=== PATIENT | female | born 1990 | race African-American/Black ===

== ENCOUNTER 2020-05-24 12:15 | Emergency (ER) | payer SELFPAY ==
[2020-05-24 12:28] VITALS: PULSE 83; RESP 16; TEMP 37.2; O2SAT 100; BMI 29.2
--- NOTE | 2020-05-24 12:49 | ED.GENADULT ---
HPI - General Adult General Chief complaint: General Medical Stated complaint: abscess Time Seen by Provider: 05/24/20 12:37 Source: patient Mode of arrival: ambulatory Limitations: no limitations History of Present Illness HPI narrative: 29-year-old female coming from [facility] with sore throat for the last 3 days. Seen at [facility] and there was concern for peritonsillar abscess so the patient was sent into the ED. She received Decadron 10 mg IM and viscous lidocaine just prior to arrival. On arrival the patient is telling me she is feeling improved and she is tolerating liquids and food on arrival. She denies any associated fevers or chills for the last few days. She does have bilateral ear pain. She is alternating Motrin and Tylenol at home for pain. Onset (ago): day(s) Radiation: non-radiation Severity: moderate Pain Consistency: constant Related Data Previous Rx's Medication Instructions Recorded amoxicillin 500 mg PO BID 10 Days #20 cap 05/24/20 lidocaine HCl [Lidocaine Viscous] 1 applic MUCOUS MEMBRANE Q12H PRN 05/24/20 #15 ml Allergies Allergy/AdvReac Type Severity Reaction Status Date / Time No Known Allergies Allergy Unverified 04/23/20 19:05 [No Known Allergies*] Review of Systems Review of Systems: Yes all other systems are reviewed and are negative Constitutional: Constitutional: Reports no additional constitutional complaints, Denies body ache(s), Denies chills, Denies fever(s), Denies headache(s) and Denies weakness Eyes: Eyes: Reports no additional eye complaints and Denies change in vision ENT: Reports system reviewed and no additional complaints, except as documented, Denies dizziness, Reports otalgia, Denies headache(s), Denies nasal congestion, Denies nasal discharge, Denies neck pain and Reports sore throat Cardiovascular: Cardiovascular: Reports no additional cardiovascular complaints, Denies chest pain, Denies leg edema and Denies dyspnea Respiratory: Respiratory: Reports no additional respiratory complaints, Denies cough and Denies dyspnea Gastrointestinal: Gastrointestinal: Reports no additional gastrointestinal complaints, Denies abdominal pain, Denies diarrhea, Denies nausea and Denies vomiting Genitourinary: Genitourinary: Reports no additional female genitourinary complaints and Denies urinary incontinence Musculoskeletal: Musculoskeletal: Reports no additional musculoskeletal complaints, Denies back pain, Denies arthralgias, Denies joint swelling, Denies neck pain, Denies numbness and Denies tingling Integumentary/Breasts: Skin/Breast: Reports system reviewed and no additional complaints, except as docu and Denies rash Neurologic: Reports system reviewed and no additional complaints, except as documented, Denies Abnormal speech present, Denies dizziness, Denies headache(s), Denies numbness, Denies tingling and Denies weakness PMF Past Medical History Attestation statement: The following information was validated with the patient. Source: old records reviewed and nursing notes reviewed Medical History No known health problems Social History Social History Advance Directives: No Advance Directives Information Provided: No Physical Exam Vital Signs: Vital Signs: Vital Signs Temp Pulse Resp Pulse Ox 05/24/20 12:28 98.9 F 83 16 100 Body Mass Index 29.2 Const: General: cooperative, healthy appearing, comfortable and no acute distress Orientation/consciousness: patient oriented x3 Limitations: no limitations HENMT: Head: Yes normal to inspection Ears: hearing grossly normal bilaterally, mastoids normal, periauricular adenopathy noted and other (bilateral TM bulging-no erythema. ) General nose exam: Normal external nose present Face and sinus: Yes normal facial exam Mouth: Normal oral and palatal mucosa present Throat: Yes uvula midline, No peritonsillar mass and Yes posterior oropharynx abnormal (bilateral tonsillar erythema and exudate. no trismus ) Eyes: General: appearance normal, both eyes and all related structures Pupils: Equal, round and reactive pupils present Neck: Neck: Yes normal visual inspection Chest: Chest palpation & inspection: normal inspection of the chest Resp: Effort & Inspection: normal respiratory effort Auscultation: clear to auscultation bilaterally Cardio: Rate: regular rate Rhythm: regular rhythm Peripheral pulses: Peripheral pulses 2+ throughout GI: Inspection: Yes normal to inspection Palpation (GI): Soft to palpation and nontender Auscultation: normal bowel sounds Back/Spine/Pelvis: Thoracic/Lumbar Spine: thoracic and lumbar spine normal to inspection Skin: General skin exam: no rashes or lesions noted Neuro: General: patient oriented x3, no focal motor deficits and normal sensation to monofilament Cranial nerves: Yes Equal, round and reactive pupils present Cognition (Neuro): normal cognition Speech: No Abnormal speech present Gait exam (Neuro): Normal gait present Motor exam (neuro): 5/5 motor strength present throughout Extrem: General: Yes normal to inspection Course Course Course Narrative: 29-year-old female here with sore throat for 3 days. Seen at urgent care and sent into the ED further evaluation with concern for peritonsillar abscess. Exam is consistent with bilateral tonsillitis. There is no obvious peritonsillar abscess. Uvula is midline. There is no trismus. Tolerating liquids and food in the ED. Will send rapid strep test. Patient is requesting COVID testing. She has no additional symptoms. SARS COVID testing sent. 1350- Rapid strep positive. Will treat with amoxicillin times 10 days. Patient tolerated Jell-O, putting and a sandwich while she was here in the ER. Well appearing. Reviewed worrisome signs and symptoms and when to return to the emergency department. Comfortable discharge home. Medical Decision Making MDM Narrative Medical decision making narrative: rapid strep positive. Low concern for peritonsillar abscess with no unilateral swelling. Uvula is midline. The patient is tolerating secretions with no trismus Or voice change. Lab Data Lab results reviewed: Yes I reviewed the patient's lab results. Lab results narrative: Rapid strep positive Discharge Plan Discharge Clinical Impression: Pharyngitis Qualifiers: Pharyngitis/tonsillitis etiology: streptococcus Qualified Code(s): J02.0 - Streptococcal pharyngitis Patient Disposition: Home, Self-Care Instructions: Pharyngitis (ED) Additional Instructions: salt water gargles Throw out toothbrush after 2 doses of antibiotic Continue motrin and tylenol as discussed We will call you in 1-2 days with your COVID result Prescriptions: New amoxicillin 500 mg capsule 500 mg PO BID 10 Days Qty: 20 RF: 0 Lidocaine Viscous 2 % solution 1 applic mucous membrane Q12H PRN (Reason: pain) Qty: 15 RF: 0 Referrals: Candie Becerra APRN [Primary Care Provider] - 2 days Stand Alone Forms: Work/School Release Interventions: ED Discharge Assessment Last Done: 05/24/20 14:01 Discharge Date/Time: 05/24/20 14:02
[2020-05-24] MEDS: Amoxicillin 500 MG CAPSULE PO (13:53)
== END 2020-05-24 14:02 | disposition home or self-care (01) ==
PROVIDERS: Nurse Practitioner Family; Emergency Provider Emergency Medicine; PCP Nurse Practitioner
DX: J02.0 Streptococcal pharyngitis (principal); Z20.828 Contact with and (suspected) exposure to other viral communicable diseases
CPT/HCPCS: 87635; 99283; 99284

== ENCOUNTER → 2020-11-03 11:30 | Outpatient (BNVA) | payer OTHER, SELFPAY | PROVIDERS: PCP Internal Medicine; Visit Provider Dietitian, Registered ==

== ENCOUNTER → 2020-12-31 11:52 | Outpatient (BNVA) | payer OTHER, SELFPAY | PROVIDERS: PCP Internal Medicine; Visit Provider Dietitian, Registered | DX: E66.3 Overweight (principal) | CPT/HCPCS: 97803 ==

== ENCOUNTER 2021-01-14 14:20 | Emergency (ER) | payer OTHER, SELFPAY ==
[2021-01-14] VITALS (9 sets, daily range): BP systolic 102–114; BP diastolic 49–62; PULSE 66–84; RESP 16; TEMP 36.9–37.4; O2SAT 97–99; BMI 26.5
--- NOTE | ~2021-01-14 | CT_ITS ---
EXAMINATION: CT ABDOMEN AND PELVIS WITH CONTRAST CLINICAL INFORMATION: Sudden onset abdominal pain after intercourse COMPARISON: None TECHNIQUE: Multidetector volumetric images were obtained from the superior aspect of the liver through the pubic symphysis following administration 85 mL of Omnipaque 350 intravenous contrast. Sagittal and coronal reformatted images were obtained on the technologist's workstation. Oral contrast: No This CT examination was performed using dose optimization techniques as appropriate, variously including the following: *Automated exposure control *Adjustment of mA and/or kV according to patient size (this includes techniques or standardized protocols for targeted exams where dose is matched to indication/reason for exam; i.e. extremities or head) *Use of iterative reconstruction technique DLP: 578 mGy-cm FINDINGS: LUNG BASES: The visualized lung bases are unremarkable. LIVER, GALLBLADDER, AND BILIARY TREE: The liver is normal in size, shape, and attenuation. No focal hepatic lesion or biliary ductal dilatation is present. The gallbladder is unremarkable with no evidence of radiopaque gallstones, gallbladder wall thickening, or obvious pericholecystic inflammatory changes. PANCREAS: Unremarkable. SPLEEN: Unremarkable. ADRENAL GLANDS: Unremarkable. KIDNEYS AND URETERS: The kidneys are normal in size, shape, and attenuation. No hydronephrosis, hydroureter, or calculi seen. No perinephric stranding. BLADDER: Unremarkable. GASTROINTESTINAL TRACT: The small and large bowel are unremarkable. The appendix is none seen. ABDOMINAL WALL: No significant hernia is appreciated. LYMPH NODES: No retroperitoneal lymphadenopathy. VASCULAR: The aorta and iliofemoral vessels appear normal. PERITONEUM and PELVIS: Moderate amount of high density ascites is present with a large mass, most likely sentinel clot, seen in the right hemipelvis measuring 11.4 x 6.5 x 9.3 cm. There is a some small areas of fat attenuation within this large blood clot but the significance is uncertain. 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 The inferior epigastric arteries run directly in front of this hematoma but I do not see him as a source of hemorrhage. An anteverted is uterus is present. Aside from the sentinel clot, no other adnexal masses are seen. As most of this blood is in the peritoneal cavity. Differential diagnosis would include a ruptured hemorrhagic ovarian cysts, bleeding from a dermoid or other ovarian neoplasm, or possibly bleeding related to the pelvic varices although I would suspect that this would be too low pressure the findings present in this case. OSSEOUS STRUCTURES: Unremarkable. CT/CT abdomen pelvis w con IMPRESSION: High density ascites and large sentinel clot in right hemipelvis secondary to pelvic hemorrhage. The source of the hemorrhage is not seen but a differential diagnosis is provided above. This critical result was discussed with Dr Cosby at 5:05 pm immediately after the exam and it was ascertained that the content and urgency of the report was understood at the time of direct communication.
--- NOTE | ~2021-01-14 | CT_ITS ---
EXAMINATION: CT HEAD WITHOUT CONTRAST CLINICAL INFORMATION: Syncope, right hand injury. COMPARISON: CT head noncontrast dated 06/26/2018. TECHNIQUE: Contiguous axial imaging was performed from the skull base to vertex without intravenous administration of contrast. Additional 2-D coronal and sagittal reformatted images are generated on the CT workstation and uploaded to PACS. This CT examination was performed using dose optimization techniques as appropriate, variously including the following: *Automated exposure control *Adjustment of mA and/or kV according to patient size (this includes techniques or standardized protocols for targeted exams where dose is matched to indication/reason for exam; i.e. extremities or head) *Use of iterative reconstruction technique DLP: 695 mGy-cm FINDINGS: There is no intracranial hemorrhage, hematoma, or extra-axial fluid collection. The ventricles are normal in size. There is no hydrocephalus, edema, or mass effect. The ventura-white matter differentiation appears symmetric. There is no visible acute territorial infarct or mass lesion. The calvarium appears intact. There is no pneumocephalus or orbital emphysema. The visualized sinuses and middle ears and mastoid air cells show no significant mucosal thickening. There are no air-fluid levels. CT/CT head/brain wo con IMPRESSION: Normal study.
--- NOTE | 2021-01-14 15:09 | ED_ITS ---
HPI - Abdominal Pain General Chief Complaint: Abdominal Pain Stated Complaint: N/V/D,SOB,WEAKNESS Time Seen by Provider: 01/14/21 14:45 Source: patient Mode of arrival: EMS Limitations: no limitations History of Present Illness HPI narrative: 30-year-old female who presents emergency department for evaluation of abdominal pain. The patient states that she has not had intercourse in over a month. She states that last night at 4:00 a.m. she had intercourse. She states that it was slightly painful but not breath. She states that immediately after intercourse she developed severe pain in her abdomen. She describes the pain as a sudden onset of cramping which has been constant. The pain was severe at onset and remains severe and is 10/10. She states that the pain is worse with movement and is relieved if she stays perfectly still. She states she feels like she has to move her bowels. The patient states the last night she got up to try to move her bowels and then passed out. She did strike the right side of her head and she had loss of consciousness unknown period of time. The patient states that she is due for her next menstrual now and is 4 days late. The patient had a 7 years ago otherwise has no other past surgical history. Related Data Previous Rx's Medication Instructions Recorded amoxicillin 500 mg PO BID 10 Days #20 cap 05/24/20 lidocaine HCl [Lidocaine Viscous] 1 applic MUCOUS MEMBRANE Q12H PRN 05/24/20 #15 ml Allergies Allergy/AdvReac Type Severity Reaction Status Date / Time No Known Allergies Allergy Unverified 04/23/20 19:05 [No Known Allergies*] Review of Systems Review of Systems Yes all other systems are reviewed and are negative Physical Exam Vital Signs: Vital Signs: Last Vital Signs Temp 98.7 F 01/14/21 18:05 Pulse 76 01/14/21 18:05 Resp 16 01/14/21 18:05 BP 105/58 L 01/14/21 18:05 Pulse Ox 99 01/14/21 18:05 Body Mass Index 26.5 Const: General: cooperative and in distress severe (Secondary to pain) Orientation/consciousness: oriented to person and oriented to place Limitations: no limitations HENMT: Other: The patient has a small hematoma with a superficial laceration to her right forehead consistent with her striking her head after syncopal episode Head: Yes normocephalic Ears: external ears normal General nose exam: Normal external nose present Face and sinus: Yes normal facial exam Mouth: Normal oral and palatal mucosa present Throat: Yes posterior oropharynx normal Eyes: Periorbital: periorbital findings normal Eyelids: Yes eyelids normal Conjunctivae: conjunctivae normal Sclerae: sclerae normal Corneas: corneas normal Pupils: Equal, round and reactive pupils present Direct Ophthalmoscopy: normal light reflex Neck: Neck: Yes full ROM, Yes no lymphadenopathy, Yes no meningeal signs, Yes trachea midline and Yes supple Chest: Chest palpation & inspection: normal inspection of the chest and normal palpation of entire chest wall Resp: Effort & Inspection: normal respiratory effort and able to speak in complete sentences Auscultation: clear to auscultation bilaterally Cardio: Rate: regular rate Rhythm: regular rhythm Heart sounds: S1 normal heart sound present, S2 normal heart sound present and no murmurs GI: Inspection: Yes normal to inspection Palpation (GI): Soft to palpation, Tenderness to palpation present (GI) in the LLQ, in the RLQ, suprapubicly and with rebound tenderness, no guarding, not rigid and No hepatosplenomegaly present : General: Yes no CVA tenderness Back/Spine/Pelvis: Back: no CVA tenderness Cervical Spine: normal cervical lordosis Thoracic/Lumbar Spine: thoracic and lumbar spine normal to inspection Skin: Lesions: no lesions Rashes: no rashes Wounds: no wounds Neuro: General: oriented to person, oriented to place and no meningeal signs Cranial nerves: Yes CN's II-XII intact bilaterally and Yes Equal, round and reactive pupils present Cognition (Neuro): normal cognition Motor exam (neuro): 5/5 motor strength present throughout Extrem: General: Yes normal to inspection and Yes full ROM Psych: Appearance: well kempt Mental Status: mental status grossly normal Speech and movement: Normal speech and movement present Affect: normal affect Attitude: cooperative Thought process: Normal thought process present Thought content: Normal thought content present Course Course Course Narrative: 30-year-old female who presents emergency department for evaluation of sudden onset abdominal pain which started at 4:00 a.m. after she had intercourse. The pain is been constant and severe. Patient has the urge to move her bowels but was unable to produce stool. On her physical examination she had lower abdominal tenderness which was moderate to severe with rebound and guarding. I am concerned the patient may have a perforation possibly of her uterus verses a perforated viscus. I ordered a CBC, CMP, PT/INR, PTT, lactic acid, lipase, serum HCG. The patient was ordered to get morphine 4 mg IV and Zofran 4 mg IV. I also ordered normal saline x1 L. 1733: Patient's laboratory evaluation revealed low H&H of 8.8 and 26.6. Patient's coags were normal. Quantitative Beta hCG was negative. CT scan of the head was negative. CT scan of the abdomen pelvis findings are as follows: moderate amount of high density ascites present with a large mass, most likely sentinel clot, seen in the right hemipelvis measuring 11.4 x 6.5 x 9.3 cm. Differential diagnosis would include a ruptured hemorrhagic ovarian cysts, bleeding from a dermoid or other ovarian neoplasm, or possibly bleeding related to the pelvic varices although I would suspect that this would be too low pressure the findings present in this case. I discussed these findings with our covering general surgeon, Dr. Boss and he recommended consulting OBGYN. I then discuss these findings with Dr. Storey our covering OBGYN surgeon. Given the differential which includes possible ovarian neoplasm, she felt that the patient would be better cared for at a facility that had gynecologic heme Onc and possible interventional radiology capabilities, therefore she recommended patient be transferred to [facility]. Our OBGYN also recommended repeat CBC to see if the patient is actively bleeding. 1750: I did contact [facility] transfer line and I will discuss transfer with the covering OBGYN service. 1805: Repeat CBC revealed an H&H of 8.2 in 25.0. This is reassuring suggesting that she may not be actively bleeding. I did order transfusion of 2 units of packed red blood cells and we are currently waiting for the blood to come from the blood bank. 1831: I did discuss the patient's presentation with the OBGYN attending at [facility], who will accept this patient in transfer to the OBGYN service. I will transfuse 2 units of packed red blood cells prior to transferring the patient. MDM - Abdominal Pain Lab Data Result diagrams: 01/14/21 17:46 01/14/21 15:36 Labs: Lab Results 01/14/21 01/14/21 01/14/21 Range/Units 15:35 15:35 15:36 WBC 12.3 H (4.8-10.8) X10*3/uL RBC 2.94 L (4.20-5.50) X10*6/uL Hgb 8.8 L (12.0-16.0) g/dl Hct 26.6 L (37-47) % MCV 90.5 (80-98) fL MCH 29.9 (27.0-33.0) pg MCHC 33.1 (31.0-35.0) g/dl RDW 11.4 (11.0-16.0) % Plt Count 201 (160-400) X10*3/uL MPV 9.3 L (9.4-12.3) fL Immature Gran % (Auto) 0.6 H (0.0-0.4) % Neut % (Auto) 81.5 H (45-73) % Lymph % (Auto) 13.1 L (20-40) % [place] % (Auto) 4.5 (2-11) % Eos % (Auto) 0.2 (0-4) % Baso % (Auto) 0.1 (0-2) % Lymph # (Auto) 1.6 (1.2-4.9) X10*3/uL [place] # (Auto) 0.6 (0.1-1.2) X10*3/uL Eos # (Auto) 0.0 (0.0-0.4) X10*3/uL Baso # (Auto) 0.0 (0.0-0.2) X10*3/uL Abs Immat Gran (auto) 0.08 H (0.00-0.03) X10*3/uL Absolute Neuts (auto) 10.0 H (2.0-8.3) X10*3/uL Absolute Nucleated RBC 0.000 (0.0-0.012) X10*3/uL Nucleated RBC % (auto) 0.0 (0.0-0.2) /100WBC PT 13.9 H (10.8-13.0) SEC INR 1.2 H (0.9-1.1) APTT 23.1 L (24.1-38.0) SEC Sodium 135 (135-145) mmol/L Potassium 4.1 (3.3-5.1) mmol/L Chloride 108 (96-108) mmol/L Carbon Dioxide 20 L (22-29) mmol/L Anion Gap 11 L (12-20) BUN 12 (9-16) mg/dL Creatinine 0.64 (0.5-1.4) mg/dL Estim Creat Clear Calc 116.8 Estimated GFR > 60 Random Glucose 93 (60-115) mg/dL Lactic Acid (0.5-2.0) mmol/L Calcium 8.6 (8.4-10.2) mg/dL Total Bilirubin 0.4 (0.0-1.0) mg/dL AST 13 (5-31) U/L ALT 12 (0-31) U/L Alkaline Phosphatase 34 L (39-117) U/L Total Protein 5.7 L (6.5-8.0) g/dL Albumin 3.7 (3.5-5.0) g/dL Lipase 10 (8-78) U/L Beta HCG, Quant < 2 mIU/mL Blood Type Crossmatch 01/14/21 01/14/21 01/14/21 Range/Units 15:36 17:41 17:46 WBC 11.5 H (4.8-10.8) X10*3/uL RBC 2.72 L (4.20-5.50) X10*6/uL Hgb 8.2 L (12.0-16.0) g/dl Hct 25.0 L (37-47) % MCV 91.9 (80-98) fL MCH 30.1 (27.0-33.0) pg MCHC 32.8 (31.0-35.0) g/dl RDW 11.7 (11.0-16.0) % Plt Count 183 (160-400) X10*3/uL MPV 9.1 L (9.4-12.3) fL Immature Gran % (Auto) 0.6 H (0.0-0.4) % Neut % (Auto) 75.0 H (45-73) % Lymph % (Auto) 17.8 L (20-40) % [place] % (Auto) 5.8 (2-11) % Eos % (Auto) 0.7 (0-4) % Baso % (Auto) 0.1 (0-2) % Lymph # (Auto) 2.0 (1.2-4.9) X10*3/uL [place] # (Auto) 0.7 (0.1-1.2) X10*3/uL Eos # (Auto) 0.1 (0.0-0.4) X10*3/uL Baso # (Auto) 0.0 (0.0-0.2) X10*3/uL Abs Immat Gran (auto) 0.07 H (0.00-0.03) X10*3/uL Absolute Neuts (auto) 8.6 H (2.0-8.3) X10*3/uL Absolute Nucleated RBC 0.000 (0.0-0.012) X10*3/uL Nucleated RBC % (auto) 0.0 (0.0-0.2) /100WBC PT (10.8-13.0) SEC INR (0.9-1.1) APTT (24.1-38.0) SEC Sodium (135-145) mmol/L Potassium (3.3-5.1) mmol/L Chloride (96-108) mmol/L Carbon Dioxide (22-29) mmol/L Anion Gap (12-20) BUN (9-16) mg/dL Creatinine (0.5-1.4) mg/dL Estim Creat Clear Calc Estimated GFR Random Glucose (60-115) mg/dL Lactic Acid 0.9 (0.5-2.0) mmol/L Calcium (8.4-10.2) mg/dL Total Bilirubin (0.0-1.0) mg/dL AST (5-31) U/L ALT (0-31) U/L Alkaline Phosphatase (39-117) U/L Total Protein (6.5-8.0) g/dL Albumin (3.5-5.0) g/dL Lipase (8-78) U/L Beta HCG, Quant mIU/mL Blood Type A Positive Crossmatch See Detail Imaging Data CT abdomen pelvis with IV contrast: Radiologist's impression: [address] [id number] Scan ReportSigned Patient: Makenna SantiagoMR#: [id number]: [id number]:[id number]/Sex: 30 / FADM Date: 01/14/21Loc: HO.EDAttending Dr: Ordering Physician: Tony Cosby MD Date of Service: 01/14/21 Procedure(s): CT abdomen pelvis w con Accession Number(s): [id number] cc: Tony Cosby MD~ EXAMINATION: CT ABDOMEN AND PELVIS WITH CONTRAST CLINICAL INFORMATION: Sudden onset abdominal pain after intercourse COMPARISON: None TECHNIQUE: Multidetector volumetric images were obtained from the superior aspect of the liver through the pubic symphysis following administration 85 mL of Omnipaque 350 intravenous contrast. Sagittal and coronal reformatted images were obtained on the technologist's workstation. Oral contrast: No This CT examination was performed using dose optimization techniques as appropriate, variously including the following: *Automated exposure control *Adjustment of mA and/or kV according to patient size (this includes techniques or standardized protocols for targeted exams where dose is matched to indication/reason for exam; i.e. extremities or head) *Use of iterative reconstruction technique DLP: 578 mGy-cm FINDINGS: LUNG BASES: The visualized lung bases are unremarkable. LIVER, GALLBLADDER, AND BILIARY TREE: The liver is normal in size, shape, and attenuation. No focal hepatic lesion or biliary ductal dilatation is present. The gallbladder is unremarkable with no evidence of radiopaque gallstones, gallbladder wall thickening, or obvious pericholecystic inflammatory changes. PANCREAS: Unremarkable. SPLEEN: Unremarkable. ADRENAL GLANDS: Unremarkable. KIDNEYS AND URETERS: The kidneys are normal in size, shape, and attenuation. No hydronephrosis, hydroureter, or calculi seen. No perinephric stranding. BLADDER: Unremarkable. GASTROINTESTINAL TRACT: The small and large bowel are unremarkable. The appendix is none seen. ABDOMINAL WALL: No significant hernia is appreciated. LYMPH NODES: No retroperitoneal lymphadenopathy. VASCULAR: The aorta and iliofemoral vessels appear normal. PERITONEUM and PELVIS: Moderate amount of high density ascites is present with a large mass, most likely sentinel clot, seen in the right hemipelvis measuring 11.4 x 6.5 x 9.3 cm. There is a some small areas of fat attenuation within this large blood clot but the significance is uncertain. 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 The inferior epigastric arteries run directly in front of this hematoma but I do not see him as a source of hemorrhage. An anteverted is uterus is present. Aside from the sentinel clot, no other adnexal masses are seen. As most of this blood is in the peritoneal cavity. Differential diagnosis would include a ruptured hemorrhagic ovarian cysts, bleeding from a dermoid or other ovarian neoplasm, or possibly bleeding related to the pelvic varices although I would suspect that this would be too low pressure the findings present in this case. OSSEOUS STRUCTURES: Unremarkable. CT/CT abdomen pelvis w con IMPRESSION: High density ascites and large sentinel clot in right hemipelvis secondary to pelvic hemorrhage. The source of the hemorrhage is not seen but a differential diagnosis is provided above. This critical result was discussed with Dr Cosby at 5:05 pm immediately after the exam and it was ascertained that the content and urgency of the report was understood at the time of direct communication. Dictated By:TAYLOR WARREN MDSigned By:<Electronically signed by TAYLOR WARREN MD in OV>01/14/21 1724 DD/ [id number]/TT: Associate Professor Of Communication: Critical Care Time Critical Care Time Total Critical Care Time: 45 Attestation: Critical Care: The patient was critically ill with a high probability of imminent or life threatening deterioration. I spent greater than 30 minutes of discontinuous time evaluating the patient,delivering critical care at the bedside, discussing and evaluating pertinent data with consultants. Critical care time does not include time spent performing separately billable procedures or teaching. Total time spent performing critical care was 45 minutes. Discharge Plan Discharge Clinical Impression: Nontraumatic hemoperitoneum Abdominal pain Qualifiers: Abdominal location: lower abdomen, unspecified Qualified Code(s): R10.30 - Lower abdominal pain, unspecified Syncope Qualifiers: Syncope type: unspecified Qualified Code(s): R55 - Syncope and collapse Closed head injury Qualifiers: Encounter type: initial encounter Qualified Code(s): S09.90XA - Unspecified injury of head, initial encounter Patient Disposition: [facility] Transfer Details: [facility] ED to OBGYN service Prescriptions: No Action amoxicillin 500 mg capsule 500 mg PO BID 10 Days Qty: 20 RF: 0 Lidocaine Viscous 2 % solution 1 applic mucous membrane Q12H PRN (Reason: pain) Qty: 15 RF: 0 PMFSH Past Medical History PMFSH Narrative: Past medical history: None . Past surgical history: C- section 7 years prior. Social history: She smokes 2-3 cigarettes per day times several years. She drinks alcohol on the weekends, 1-2 drinks. She denies drug use. Medical History (Updated 01/14/21 @ 18:40 by Tony Cosby MD) Hemoperitoneum No known health problems Social History Social History Alcohol intake: never Patient Tobacco Use Status: Current someday Tobacco user Use of substances other than those prescribed or required for medical reasons: No Advance Directives: Yes Advance Directives Information Provided: Yes Advance Directives on File: No Patient : No
[2021-01-14] MEDS: Morphine Sulfate 4 MG/ML CARTRIDGE IVPUSH (15:37)
[2021-01-14] MEDS: ondansetron HCL 4 MG/2 ML VIAL IVPUSH (15:37)
[2021-01-14] MEDS: 0.9 % Sodium Chloride 1,000 ML 999 ML IV (15:37)
[2021-01-14 15:43] LABS: MANUAL DIFF FLAG NO
[2021-01-14 15:45] LABS: Basophils Percent Auto 0.1 % (0-2); Eosinophils Percent Auto 0.2 % (0-4); Hematocrit 26.6 % (37-47); Hemoglobin 8.8 g/dl (12.0-16.0); Imm Gran Abs Auto 0.08 X10*3/uL (0.00-0.03); Imm Gran Pct Auto 0.6 % (0.0-0.4); Lymphocytes Absolute Auto 1.6 X10*3/uL (1.2-4.9); Lymphocytes Percent Auto 13.1 % (20-40); Mean Corpuscular HGB Conc 33.1 g/dl (31.0-35.0); Mean Corpuscular Hemoglobin 29.9 pg (27.0-33.0); Mean Corpuscular Volume 90.5 fL (80-98); Mean Platelet Volume 9.3 fL (9.4-12.3); Monocytes Absolute Auto 0.6 X10*3/uL (0.1-1.2); Monocytes Percent Auto 4.5 % (2-11); Neutrophils Percent Auto 81.5 % (45-73); Platelet Count 201 X10*3/uL (160-400); Red Blood Count 2.94 X10*6/uL (4.20-5.50); Red Cell Distribution Width 11.4 % (11.0-16.0); White Blood Count 12.3 X10*3/uL (4.8-10.8)
[2021-01-14 15:54] LABS: INTERNATIONAL NORM RATIO 1.2 (0.9-1.1); Prothrombin Time 13.9 SEC (10.8-13.0)
[2021-01-14 16:08] LABS: Partial Thromboplastin Time 23.1 SEC (24.1-38.0)
[2021-01-14 16:13] LABS: Lactic Acid 0.9 mmol/L (0.5-2.0)
[2021-01-14 16:23] LABS: HCG Quantitative < 2 mIU/mL
[2021-01-14] MEDS: iohexoL 350 MG/ML 100 ML INFUS..BTL IV (16:28)
[2021-01-14 16:39] LABS: Alanine Aminotransferase 12 U/L (0-31); Albumin Level 3.7 g/dL (3.5-5.0); Alkaline Phosphatase 34 U/L (39-117); Anion Gap 11 (12-20); Aspartate Amino Transferase 13 U/L (5-31); Bilirubin Total 0.4 mg/dL (0.0-1.0); Blood Urea Nitrogen 12 mg/dL (9-16); Calcium 8.6 mg/dL (8.4-10.2); Carbon Dioxide 20 mmol/L (22-29); Chloride 108 mmol/L (96-108); Creatinine Clr Calc Pharmacy 116.8; Estimated Glomerular Filt Rate > 60; Glucose Random 93 mg/dL (60-115); Lipase 10 U/L (8-78); Potassium 4.1 mmol/L (3.3-5.1); Sodium 135 mmol/L (135-145); Total Protein 5.7 g/dL (6.5-8.0)
[2021-01-14] MEDS: Ketorolac Tromethamine 30 MG/ML VIAL IVPUSH (16:39)
[2021-01-14 17:50] LABS: MANUAL DIFF FLAG NO
[2021-01-14 17:51] LABS: Basophils Percent Auto 0.1 % (0-2); Eosinophils Absolute Auto 0.1 X10*3/uL (0.0-0.4); Eosinophils Percent Auto 0.7 % (0-4); Hemoglobin 8.2 g/dl (12.0-16.0); Imm Gran Abs Auto 0.07 X10*3/uL (0.00-0.03); Imm Gran Pct Auto 0.6 % (0.0-0.4); Lymphocytes Percent Auto 17.8 % (20-40); Mean Corpuscular HGB Conc 32.8 g/dl (31.0-35.0); Mean Corpuscular Hemoglobin 30.1 pg (27.0-33.0); Mean Corpuscular Volume 91.9 fL (80-98); Mean Platelet Volume 9.1 fL (9.4-12.3); Monocytes Absolute Auto 0.7 X10*3/uL (0.1-1.2); Monocytes Percent Auto 5.8 % (2-11); Neutrophils Absolute Auto 8.6 X10*3/uL (2.0-8.3); Platelet Count 183 X10*3/uL (160-400); Red Blood Count 2.72 X10*6/uL (4.20-5.50); Red Cell Distribution Width 11.7 % (11.0-16.0); White Blood Count 11.5 X10*3/uL (4.8-10.8)
--- NOTE | 2021-01-14 18:07 | PM.CNGS ---
History of Present Illness Consult details Consult date: 01/14/21 Narrative: 30F her in the ED for lower abdominal pain. She says this started at around 4 am this morning. She states that this started immediately after she had sexual intercourse. She denies instrumentation into the vagina. She says the pain was sudden and severe and she apparently passed out around 7 am. She did not go to the hospital immediately as she says she felt very weak and had a 7 y.o daughter with her who needed children's institution attendant. She eventually called an ambulance this afternoon to take her to the ED. She denies any vagfinal bleeding. She denies bleeding per rectum She says she \hit her head when she fell during her syncopal episode. Review of Systems Constitutional: Constitutional: Denies chills and Denies fever(s) Cardiovascular: Cardiovascular: Denies chest pain, Denies dyspnea and Denies dyspnea on exertion Respiratory: Respiratory: Denies cough, Denies dyspnea and Denies dyspnea on exertion Gastrointestinal: Gastrointestinal: Denies hematochezia and Denies change in bowel habits Genitourinary: Genitourinary: Denies abnormal vaginal bleeding, Denies hematuria and Denies vaginal discharge Musculoskeletal: Musculoskeletal: Denies back pain and Denies limited range of motion Neurologic: Denies focal weakness and Denies convulsions Psychiatric: Psychiatric: Denies depression and Denies mood swings PMFSH Past Medical History Medical History (Updated 01/15/21 @ 00:01 by Abhilash Maradiaga) Hemoperitoneum No known health problems Social History Social History Alcohol intake: never Patient Tobacco Use Status: Current someday Tobacco user Use of substances other than those prescribed or required for medical reasons: No Advance Directives: Yes Advance Directives Information Provided: Yes Advance Directives on File: No Patient : No Meds Allergies Allergy/AdvReac Type Severity Reaction Status Date / Time No Known Allergies Allergy Unverified 04/23/20 19:05 [No Known Allergies*] Physical Exam Vital Signs: Vital Signs: Last Vital Signs Temp 99.4 F 01/14/21 14:35 Pulse 83 01/14/21 14:35 Resp 16 01/14/21 14:35 BP 106/55 L 01/14/21 14:35 Pulse Ox 97 01/14/21 14:35 Body Mass Index 26.5 Const: Other: not distress but very anxious, crying General: comfortable Orientation/consciousness: patient oriented x3 Neck: Neck: Yes no lymphadenopathy Resp: Auscultation: clear to auscultation bilaterally Cardio: Rhythm: regular rhythm GI: Other: tender mostly on the lower abdomen, pelvic area Palpation (GI): Soft to palpation, Tenderness to palpation present (GI) and Guarding due to palpation present (GI) Neuro: General: patient oriented x3 Results Labs Result diagrams: 01/14/21 17:46 01/14/21 15:36 Labs: Abnormal lab results 01/14/21 01/14/21 01/14/21 Range/Units 15:35 15:35 15:36 WBC 12.3 H (4.8-10.8) X10*3/uL RBC 2.94 L (4.20-5.50) X10*6/uL Hgb 8.8 L (12.0-16.0) g/dl Hct 26.6 L (37-47) % MPV 9.3 L (9.4-12.3) fL Immature Gran % (Auto) 0.6 H (0.0-0.4) % Neut % (Auto) 81.5 H (45-73) % Lymph % (Auto) 13.1 L (20-40) % Abs Immat Gran (auto) 0.08 H (0.00-0.03) X10*3/uL Absolute Neuts (auto) 10.0 H (2.0-8.3) X10*3/uL PT 13.9 H (10.8-13.0) SEC INR 1.2 H (0.9-1.1) APTT 23.1 L (24.1-38.0) SEC Carbon Dioxide 20 L (22-29) mmol/L Anion Gap 11 L (12-20) Alkaline Phosphatase 34 L (39-117) U/L Total Protein 5.7 L (6.5-8.0) g/dL Crossmatch 01/14/21 01/14/21 Range/Units 17:41 17:46 WBC 11.5 H (4.8-10.8) X10*3/uL RBC 2.72 L (4.20-5.50) X10*6/uL Hgb 8.2 L (12.0-16.0) g/dl Hct 25.0 L (37-47) % MPV 9.1 L (9.4-12.3) fL Immature Gran % (Auto) 0.6 H (0.0-0.4) % Neut % (Auto) 75.0 H (45-73) % Lymph % (Auto) 17.8 L (20-40) % Abs Immat Gran (auto) 0.07 H (0.00-0.03) X10*3/uL Absolute Neuts (auto) 8.6 H (2.0-8.3) X10*3/uL PT (10.8-13.0) SEC INR (0.9-1.1) APTT (24.1-38.0) SEC Carbon Dioxide (22-29) mmol/L Anion Gap (12-20) Alkaline Phosphatase (39-117) U/L Total Protein (6.5-8.0) g/dL Crossmatch See Detail Short CBC 01/14/21 01/14/21 Range/Units 15:35 17:46 WBC 12.3 H 11.5 H (4.8-10.8) X10*3/uL Hgb 8.8 L 8.2 L (12.0-16.0) g/dl Hct 26.6 L 25.0 L (37-47) % Plt Count 201 183 (160-400) X10*3/uL BMP 01/14/21 15:36 Sodium 135 Potassium 4.1 Chloride 108 Carbon Dioxide 20 L BUN 12 Creatinine 0.64 Calcium 8.6 Liver Function 01/14/21 Range/Units 15:36 Total Bilirubin 0.4 (0.0-1.0) mg/dL AST 13 (5-31) U/L ALT 12 (0-31) U/L Alkaline Phosphatase 34 L (39-117) U/L Albumin 3.7 (3.5-5.0) g/dL All other labs normal. Imaging Abdomen CT scan report/results: report reviewed and image reviewed CT scan - pelvis: report reviewed and image reviewed Assessment and Plan (1) Hemoperitoneum: Status: Acute I have reviewed her CT images and there is note of large amounts of clots in the right adnexal area and hemoperitoneum. The CT scan picture and the clinical timeline is suggestive of a pelvic etiology, like a ruptured hemorrhagic cyst. She had a significant drop in Hg compared to 2019, so her syncopal episode is likely from her acute anemia. I have recommended to the ED physician to have her evaluated by the top screw. The patient may also be a candidate for Interventional Radiology to identify the bleeding vessel and possible treat this angiographically. She appears to be hemodynamically stable at this time. In the event that a laparoscopy/laparotomy is done by the [facility] service, I can be around to assist. I discussed the above with the ED physician. Procedures Date of Service Date of Service: 01/14/21
[2021-01-14] MEDS: fentaNYL citrate/PF 100 MCG/2 ML VIAL 50 MCG IVPUSH (19:46)
[2021-01-14 19:53] LABS: COVID-19 Test Negative (Negative)
[2021-01-14 20:37] LABS: Glucose Urine UA NEG (NEG); Leukocyte Esterase Urine NEG (NEG); Nitrite Urine POS (NEG); PH 5.5 (5.0-8.0); Specific Gravity - Urine 1.015 (1.005-1.025); UACC Culture Trigger YES; Urine Blood NEG (NEG); Urine Ketones 15 MG/DL (NEG); Urine Protein NEG (NEG-TRACE)
[2021-01-14 20:40] LABS: Appearance Urine CLEAR; Color Urine YELLOW
[2021-01-14 20:44] LABS: Bacteria Urine 1+ /LPF; RBC Urine 0-2 /HPF (0); Squamous Epithelial Cell Urine 2+ /LPF
== END 2021-01-14 23:01 | disposition short-term general hospital (02) ==
PROVIDERS: Emergency Provider Emergency Medicine Emergency Medical Services
DX: K66.1 Hemoperitoneum (principal); R55 Syncope and collapse; R10.30 Lower abdominal pain, unspecified; R11.2 Nausea with vomiting, unspecified; S00.83XA Contusion of other part of head, initial encounter; W17.89XA Other fall from one level to another, initial encounter; Z20.822 Contact with and (suspected) exposure to COVID-19; Y93.89 Activity, other specified; Y92.031 Bathroom in apartment as the place of occurrence of the external cause; Y99.9 Unspecified external cause status; F17.210 Nicotine dependence, cigarettes, uncomplicated
CPT/HCPCS: 36415; 36430; 70450; 74177; 80053; 81001; 81003; 83605; 83690; 84702; 85025; 85610; 85730; 86850; 86900; 86901; 86923; 87086; 87635; 96361; 96374; 96375; 99284; 99291; J1885; J2270; J2405; J3010; P9016; Q9967